=== PATIENT | male | born 1970 | race Caucasian/White ===

== ENCOUNTER 2023-10-19 22:40 | Emergency (ER) | payer OTHER ==
[~2023-10-19] VITALS: Ht 170.2 cm; Wt 34.9 kg
[2023-10-19 22:50] VITALS: BP 142/83; TEMP 97.4; O2SAT 95
== END 2023-10-19 23:21 ==
LOC: ER 22:47
DX: Z02.89 Encounter for other administrative examinations (principal); J45.909 Unspecified asthma, uncomplicated